=== PATIENT | male | born 1945 | race Caucasian/White ===

== ENCOUNTER 2017-09-18 07:00 | Day surgery (SDC) | payer MEDICARE ==
[2017-09-18] VITALS (13 sets, daily range): BP systolic 91–134; BP diastolic 55–76
[~2017-09-18] VITALS: Ht 180.3 cm; Wt 92.4 kg
[~2017-09-18 07:00] MED LIST: SODIUM CHLORIDE 0.9% 1000ML 1,000 ML IV ONE
[2017-09-18] MEDS ORDERED: EZET10TA26 PO (08:20)
[2017-09-18] MEDS ORDERED: APIX5TAB PO (08:20)
[2017-09-18] MEDS ORDERED: VIT1CAPS5 PO (08:20)
[2017-09-18] MEDS ORDERED: TAMS0.4C32 PO (08:20)
[2017-09-18] MEDS ORDERED: ROPI1TAB11 PO (08:20)
[2017-09-18] MEDS ORDERED: METH-370 PO (08:20)
[2017-09-18] MEDS ORDERED: PROP20TA7 PO (08:20)
[2017-09-18] MEDS ORDERED: PRAV20TA4 PO (08:20)
[2017-09-18] MEDS ORDERED: MEPERIDINE-PF 50 MG/ML SYG ONE ×2 (09:44→09:56)
[2017-09-18] MEDS ORDERED: MIDAZOLAM HCL 1 MG/ML 2ML VIAL ONE ×2 (09:45→09:57)
[2017-09-18] MEDS ORDERED: PROPOFOL 10 MG/ML 20ML VIAL IV ONE (10:12)
[2017-09-18] MEDS ORDERED: EPHEDRINE SULFATE 50 MG/ML AMPULE ONE (10:31)
== END 2017-09-18 11:52 | disposition home or self-care (01) ==
LOC: DAH 07:00 → ENDO 07:00
PROVIDERS: ATTEND Internal Medicine
DX: Z12.11 Encounter for screening for malignant neoplasm of colon (principal); D12.3 Benign neoplasm of transverse colon; D12.4 Benign neoplasm of descending colon; K63.5 Polyp of colon; K62.1 Rectal polyp; Z95.0 Presence of cardiac pacemaker; I71.9 Aortic aneurysm of unspecified site, without rupture; E03.9 Hypothyroidism, unspecified; Z98.49 Cataract extraction status, unspecified eye; Z98.890 Other specified postprocedural states; Z79.899 Other long term (current) drug therapy; Z85.89 Personal history of malignant neoplasm of other organs and systems; I44.7 Left bundle-branch block, unspecified; Z86.010 Personal history of colon polyps
CPT/HCPCS: 45380; 45385; 88305; 93005; A4606; J2175 ×2; J2250 ×2; J2704; J3490; J7030

== ENCOUNTER 2017-11-24 06:54 | Day surgery (SDC) | payer MEDICARE ==
[~2017-11-24] VITALS: Ht 185.4 cm; Wt 92.4 kg
[~2017-11-24 06:54] MED LIST changes: +EZET10TA26 PO; +METH-370 PO; +PRAV20TA4 PO; +PROP20TA7 PO; +ROPI1TAB11 PO; +TAMS0.4C32 PO; +VIT1CAPS5 PO
[2017-11-24] MEDS ORDERED: BENEFIBER (08:32)
[2017-11-24] MEDS ORDERED: APIX5TAB PO ×2 (08:32→10:40)
[2017-11-24] MEDS ORDERED: ROPI1TAB11 PO (08:32)
[2017-11-24] MEDS ORDERED: BENTYL (08:32)
[2017-11-24] MEDS ORDERED: SANDOSTATIN (08:32)
[2017-11-24] MEDS ORDERED: PROP20TA7 PO (08:32)
[2017-11-24] MEDS ORDERED: ROSU20TA PO (08:32)
[2017-11-24] MEDS ORDERED: PROPOFOL 10 MG/ML 20ML VIAL IV ONE (08:55)
[2017-11-24 10:12] VITALS: BP 121/66
[2017-11-24 10:16] VITALS: BP 115/59
[2017-11-24 10:21] VITALS: BP 115/74
[2017-11-24 10:26] VITALS: BP 122/70
[2017-11-24 10:29] VITALS: BP 110/77
== END 2017-11-24 10:50 | disposition home or self-care (01) ==
LOC: DAH 06:54 → ENDO 06:54
PROVIDERS: ATTEND Internal Medicine
DX: Z09 Encounter for follow-up examination after completed treatment for conditions other than malignant neoplasm (principal); K63.5 Polyp of colon; Z86.010 Personal history of colon polyps; K31.9 Disease of stomach and duodenum, unspecified; K29.50 Unspecified chronic gastritis without bleeding; E03.9 Hypothyroidism, unspecified; C7B.02 Secondary carcinoid tumors of liver; E78.49 Other hyperlipidemia; I71.9 Aortic aneurysm of unspecified site, without rupture; I25.2 Old myocardial infarction; K21.9 Gastro-esophageal reflux disease without esophagitis; D64.9 Anemia, unspecified; M19.90 Unspecified osteoarthritis, unspecified site; E11.9 Type 2 diabetes mellitus without complications; Z79.899 Other long term (current) drug therapy; Z79.82 Long term (current) use of aspirin; Z95.0 Presence of cardiac pacemaker; Z98.890 Other specified postprocedural states; Z98.49 Cataract extraction status, unspecified eye; Z90.89 Acquired absence of other organs; Z88.0 Allergy status to penicillin; Z88.8 Allergy status to other drugs, medicaments and biological substances
CPT/HCPCS: 43239; 45380; 88305; 88342; 93005; A4606; J2704; J7030

== ENCOUNTER → 2018-02-15 | Outpatient (CLI) | payer MEDICARE ==
[~2018-02-15] MED LIST changes: +BENEFIBER; +BENTYL; +ROSU20TA PO; +SANDOSTATIN; -SODIUM CHLORIDE 0.9% 1000ML 1,000 ML IV ONE
[2018-02-15 12:53] LABS: BASOPHILS % (AUTO) 0.5 % (0.0-5.0); EOSINOPHILS % (AUTO) 2.9 % (0.0-8.0); HEMATOCRIT 45.2 % (42-54); LYMPHOCYTES % (AUTO) 24.2 % (21.0-51.0); MEAN CORPUSCULAR HEMOGLOBIN 31.6 pg (27.0-33.0); MEAN CORPUSCULAR HGB CONC 32.6 g/dL (32.0-36.0); MEAN CORPUSCULAR VOLUME 96.9 fL (79-99); MONOCYTES % (AUTO) 7.6 % (3.0-13.0); NEUTROPHILS % (AUTO) 64.8 % (40.0-77.0); NUCLEATED RED BLOOD CELLS 0.1 % (0.0-0.19); PLATELET COUNT (AUTO) 216 K/uL (130-400); RED BLOOD CELL COUNT(AUTO) 4.66 MIL/uL (4.50-6.20); RED CELL DISTRIBUTION WIDTH 13.1 % (11.0-15.5); WHITE BLOOD COUNT (AUTO) 6.5 K/uL (4.8-10.8)
[2018-02-15 13:06] LABS: ALBUMIN 3.7 g/dL (3.5-5.0); BILIRUBIN,TOTAL 0.4 mg/dL (0.2-1.0); TOTAL PROTEIN, SERUM 7.3 g/dL (6.0-8.3)
== END | disposition home or self-care (01) ==
LOC: LAB 12:09
PROVIDERS: ATTEND Internal Medicine
DX: R10.9 Unspecified abdominal pain (principal)
CPT/HCPCS: 36415; 80053; 82150; 83690; 85025

== ENCOUNTER → 2018-02-26 | Outpatient (CLI) | payer MEDICARE ==
[~2018-02-26] MED LIST changes: +IOHEXOL 350 MG/ML 100ML INFUS..BTL IV ONE
== END | disposition home or self-care (01) ==
LOC: RAH 10:06
PROVIDERS: ATTEND Internal Medicine
DX: K44.9 Diaphragmatic hernia without obstruction or gangrene (principal); D35.01 Benign neoplasm of right adrenal gland; K40.90 Unilateral inguinal hernia, without obstruction or gangrene, not specified as recurrent; R14.0 Abdominal distension (gaseous)
CPT/HCPCS: 74174; Q9967

== ENCOUNTER → 2018-05-07 | Outpatient (CLI) | payer MEDICARE ==
[~2018-05-07] MED LIST changes: -IOHEXOL 350 MG/ML 100ML INFUS..BTL IV ONE
== END | disposition home or self-care (01) ==
LOC: OIH 11:03
PROVIDERS: ATTEND Internal Medicine
DX: M54.2 Cervicalgia (principal); R06.00 Dyspnea, unspecified; Z95.0 Presence of cardiac pacemaker
CPT/HCPCS: 71046; 72040